=== PATIENT | female | born 1975 | race Caucasian/White ===

== ENCOUNTER 2025-07-20 08:20 | Outpatient (AMB) | payer OTHER, SELFPAY ==
--- NOTE | 2025-07-20 08:23 | A.OFFVIS_ITS ---
Vital Signs 07/20/25 08:25 Height 5 ft 4 in Weight 159 lb BMI 27.3 Intake Visit Reasons: ED/UC-De Quervain's of the right wrist Intake Note: Desire is a 49 year old right hand dominant female who presents today as a New Patient for evaluation of Right Wrist Pain and Tenderness. Per [facility] referral, patient has a positive John's consistent with De Q uervain's Tenosynovitis. She was prescribed Celebrex and Prednisone. She was also given a wrist brace. Today patient complains of right radial wrist pain despite of using her Velcro wrist brace. She explains it is painful to bend her wrist. She also complains of numbness and tingling of her right index and right middle finger DIP's. She denies any known injuries. She is not sure if the Celebrex and Prednisone helped. Allergies No Known Allergies Allergy (Verified 07/20/25 08:25) HPI HPI ED/UC-De Quervain's of the right wrist: Details: Desire is a 49 year old right hand dominant female who presents today as a New Patient for evaluation of Right Wrist Pain and Tenderness. Per [facility] referral, patient has a positive John's consistent with De Quervain's Tenosynovitis. She was prescribed Celebrex and Prednisone. She was also given a wrist brace. Today patient complains of right radial wrist pain despite of using her Velcro wrist brace. She explains it is painful to bend her wrist. Patient states that this pain is worst at the base of the thumb and extends into the forearm. She also complains of numbness and tingling of her right index and right middle finger DIP's. She denies any known injuries. She is not sure if the Celebrex and Prednisone helped. 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 Neuro: Normal sensation of the tips of all digits of the right hand at this time Vascular: Cap refill brisk Pain: Tenderness to palpation of right radial styloid Positive John on the right Negative CMC grind on the right Minimal discomfort with all other range of motion of the right wrist ROM: Range of motion of the right wrist full and intact Skin: No lacerations or abrasions. General: No ecchymosis, erythema, or evidence of infection. Psych: Appears grossly normal Affect normal Attitude cooperative Office Procedures AMB Tendon Injection Tendon Injection [id number] Tendon Sheath Injection All charges added?: Procedure code (CPT) selection complete Assessment & Plan Assessment & Plan (1) De Quervain's tenosynovitis, right: Code(s): M65.4 - Radial styloid tenosynovitis [de Quervain] Category: Medical Plan 1. Right de Quervain tenosynovitis Patient is educated about this condition Patient is educated about the treatment options available Patient would like to proceed with steroid injection at this time Injection #1: The risks and benefits of a steroid injection including but not limited to risk of damage to blood vessels, nerves, tendons, infection, skin bleaching, failure to improve symptoms, increased pain, and possible need for further injections or other intervention were discussed with the patient and the patient wishes to proceed with the steroid injection. Once consent was obtained, I sterilely prepped the area over the 1st dorsal comp artment of the right thumb. I then injected the 1st dorsal compartment with a combination of 1 mL of dexamethasone (4mg/ml), and 1% lidocaine. The patient tolerated the procedure well with no complications and good resolution of their symptoms prior to leaving clinic. If the patient continues to have pain 6-8 weeks following this injection, they may call to schedule appointment to discuss alternative treatment options Coding Level of Care Code New Pt Level 3 (25329) Diagnoses De Quervain's tenosynovitis, right M65.4 CPT Codes Tendon Injection - Tendon Injection 1: [id number] Tendon Sheath Injection ([id number])
[2025-07-20 08:25] VITALS: BMI 27.3
--- OUTSIDE RECORDS SUMMARY | 2025-07-20 08:41 | XMS_ITS ---
Author Name [facility] Organization Unknown History of Medication Use Medication Directions Dispensed Refills Start Date End Date Stat us prednisone 06/03/2025 active celecoxib 06/03/2025 active Encounters Encounter Type Encounter Reason Primary Diagnosis Location Date Ambulatory TBE Radial styloid tenosynovitis [de Quervain] [facility] 06/03/2025 Care Team Organization Name Specialty Phone Email Start Date End Da te [facility] 06/01/2025 [facility] 06/01/2025
--- OUTSIDE RECORDS SUMMARY | 2025-07-20 08:41 | XMS_ITS | Clinical Summary ---
Author Organization [address] Address [address] [place] [address] Phone Care Team Providers Care Security Orderly Name Role Phone Tez Keyes MD Primary Care Provider Surgical History Surgery Date Site/Laterality Comments TUBAL LIGATION PROCEDURE:ESSURE TUBAL LIGATION Medical History Medical History Date Comments Fibrocystic breast DX:Fibrocysti c breast Seasonal allergies DX:Seasonal a llergies Family History Medical History Relation Name Comments Breast cancer Neg Hx Cancer Neg Hx Colon cancer Neg Hx Endometrial cancer Neg Hx Ovarian cancer Neg Hx Social History Tobacco Use Types Packs/Day Years Used Date Smoking Tobacco: Never Smokeless Tobacco: Never Alcohol Use Standard Drinks/Week Comments No 0 (1 standard drink = 0.6 oz pur e alcohol) Comments Unknown Sex and Gender Information Value Date Recorded Sex Assigned at Not on file Legal Sex Female 9:38 AM EST Gender Identity Not on file Sexual Orientation Not on file Obstetrics History Plan of Treatment Upcoming Encounters Date Type Department Care Team ([facility] Contact Info) Description 11/03/2025 11:30 AM EDT Office Visit Adult Medicine [address] [phone] Tez Keyes MD [address] [place] [address] Health Maintenance Due Date Last Done Comments Colorectal Cancer Screening: Colonoscopy 1973 DTaP,Tdap,and Td Vaccines (1 - Tdap) 1992 Hepatitis B Vaccines (1 of 3 - 19+ 3-dose series) 1992 Cervical Cancer Screening: P ap Smear 1994 Breast Cancer Screening 09/01/2020 09/01/2018 Pneumococcal Vaccine: 50+ Ye ars (1 of 1 - PCV) 12/02/2023 Zoster Vaccines (1 of 2) 12/02/2023 Depression Screening 08/25/2024 HIV Screening 03/21/2025 Hepatitis C Screening 03/21/2025 Social Influencers of Health Screening 03/21/2025 COVID-19 Vaccine (1 - 2024-2 6 season) 2025 Influenza Vaccine (#1) 2025 RSV Immunization Adult Patie nts (1 - 1-dose 75+ series) 2048 HIB Vaccines Aged Out No longer eligi ble based on patient's age to complete this topic HPV Vaccines Aged Out No longer eligi ble based on patient's age to complete this topic Hepatitis A Vaccines Aged Out No long er eligible based on patient's age to complete this topic IPV Vaccines Aged Out No longer eligi ble based on patient's age to complete this topic MMR Vaccines Aged Out No longer eligi ble based on patient's age to complete this topic Meningococcal ACWY Vaccine Aged Out N o longer eligible based on patient's age to complete this topic Meningococcal B Vaccine Aged Out No l onger eligible based on patient's age to complete this topic RSV Immunization Patients Un kimberlee 20 months Aged Out No longer eligible b ased on patient's age to complete this topic Varicella Vaccines Aged Out No longer eligible based on patient's age to complete this topic Procedures Procedure Name Priority Date/Time Associated Diagnosis Comments MAMMOGRAM SCREENING BILATERAL 3D DANNY WITH CAD Routine 09/01/2018 10:31 AM EST Encounter for screening mammogram for malignant neoplasm of breast from Last 3 Months or Most Recently Relevant to Health Maintenance Results * MAMMOGRAM SCREENING BILATERAL 3D DANNY WITH CAD (09/01/2018 10:31 AM EST) Anatomical Region Laterality Modality Mammography 08/27/2018 9:27 AM EST Narrative 09/01/2018 11:47 AM EST This is a summary report. The complete report is available in the patient's medical record. If you cannot access the medical record, please contact the sending organization for a detailed fax or copy. SESSION: Separate. EXAMINATION: Bilateral digital mammograms with CAD and Tomosynthesis. INDICATION: Yearly screening. FINDINGS: Compared to 07/29/2017, 06/05/2016 and 04/06/2014. Both breasts are extremely dense, which could obscure early suspicious microcalcifications as well as small focal masses. (Breast density D, 75% to 100%). There is no significant change in the appearance and distribution of benign fibroglandular as well as fibronodular densities in the both breasts. Benign appearing scattered calcifications in the both breasts are stable. No suspicious microcalcifications or masses are seen. Mammograms were read in correlation with CAD and Tomosynthesis. CONCLUSION: 1. BIRADS Category 2: Benign findings. PQRI: 3342F. 2. Stable mammographic findings with no evidence of malignancy. Followup recommended in one year. 3. Patient has extremely dense breasts. This lowers sensitivity of mammography. Recommend bilateral screening breast ultrasound study in addition to routine yearly mammography. NOTE: Patient has been informed about her breast density, results of this mammogram and follow-up, by a patient letter with 'plain language report'. Report reviewed and signed by : Dr. Alex Michaels MD on 09/01/2018 11:47 AM. Workstation Name - [id number] Procedure Note Alex Michaels MD - 08/16/2022 This is a summary report. The complete report is available in thepatient's medical record. If you cannot access the medical record, pleasecontact the sending organization for a detailed fax or copy. SESSION: Separate. EXAMINATION: Bilateral digital mammograms with CAD and Tomosynthesis. INDICATION: Yearly screening. FINDINGS: Compared to 07/29/2017, 06/05/2016 and 04/06/2014. Both breasts are extremely dense, which could obscure early suspiciousmicrocalcifications as well as small focal masses. (Breast density D, 75%to 100%). There is no significant change in the appearance and distribution ofbenign fibroglandular as well as fibronodular densities in the bothbreasts. Benign appearing scattered calcifications in the both breasts are stable.No suspicious microcalcifications or masses are seen. Mammograms were readin correlation with CAD and Tomosynthesis. CONCLUSION: 1. BIRADS Category 2: Benign findings. PQRI: 3342F. 2. Stable mammographic findings with no evidence of malignancy. Followuprecommended in one year. 3. Patient has extremely dense breasts. This lowers sensitivity ofmammography. Recommend bilateral screening breast ultrasound study inaddition to routine yearly mammography. NOTE: Patient has been informed about her breast density, results of thismammogram and follow-up, by a patient letter with 'plain language report'. Report reviewed and signed by : Dr. Alex Michaels MD on 09/01/2018 11:47AM. Workstation Name - [id number] us Sherly Butterfield MD IMG BI PROCEDURES Final Resu lt from Last 3 Months or Most Recently Relevant to Health Maintenance Insurance [address] [address] Care Teams Security Orderly Relationship Specialty Start Date End Date Tez Keyes MD [address] [place] [id number] PCP - General Internal Medicine 03/21/25
== END 2025-07-20 09:10 | disposition home or self-care (01) ==
LOC: HO.HOS 08:20
DX: M65.4 Radial styloid tenosynovitis [de Quervain] (principal)
CPT/HCPCS: 20550; 99203

== ENCOUNTER → 2025-07-20 08:20 | Outpatient (BNVA) | payer OTHER, SELFPAY | DX: M65.4 Radial styloid tenosynovitis [de Quervain] (principal) | CPT/HCPCS: 20550; J1100; J2003 ==